=== PATIENT | female | born 1985 | race African-American/Black ===

== ENCOUNTER 2017-05-11 16:53 | Emergency (ER) | payer OTHER ==
[~2017-05-11] VITALS: Ht 160 cm; Wt 57.7 kg
[2017-05-11] MEDS ORDERED: HYDR-3114 PO (17:02)
[2017-05-11 17:18] VITALS: BP 110/84
[2017-05-11] MEDS ORDERED: IBUPROFEN 800 MG TABLET PO ONE (18:00)
[2017-05-11] MEDS ORDERED: ONDANSETRON HCL 4 MG TABLET PO ONE (18:30)
== END 2017-05-11 18:58 | disposition home or self-care (01) ==
LOC: EMS 16:56
DX: K04.7 Periapical abscess without sinus (principal); K02.9 Dental caries, unspecified; R11.0 Nausea
CPT/HCPCS: 99283; Q0162; 99285